=== PATIENT | female | born 1965 | race Caucasian/White ===

== ENCOUNTER 2017-02-03 09:15 | Emergency (ER) | payer OTHER ==
[~2017-02-03] VITALS: Ht 162.6 cm; Wt 108.9 kg
[2017-02-03 09:43] VITALS: BP 113/77
== END 2017-02-03 11:23 | disposition left against medical advice (07) ==
LOC: ER 09:15
DX: M25.552 Pain in left hip (principal); Z53.21 Procedure and treatment not carried out due to patient leaving prior to being seen by health care provider